=== PATIENT | male | born 1990 | race African-American/Black ===

== ENCOUNTER 2017-08-17 11:37 | Emergency (ER) | payer SELFPAY ==
[2017-08-17 11:45] VITALS: BP 117/57; PULSE 74; RESP 16; TEMP 97.9; O2SAT 95
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
== END 2017-08-17 12:28 | disposition home or self-care (01) ==
DX: S09.90XA Unspecified injury of head, initial encounter (principal); J45.909 Unspecified asthma, uncomplicated; V49.49XA Driver injured in collision with other motor vehicles in traffic accident, initial encounter; Y92.410 Unspecified street and highway as the place of occurrence of the external cause; Y99.8 Other external cause status; Y93.89 Activity, other specified